=== PATIENT | male | born 1965 | race Caucasian/White ===

== ENCOUNTER 2018-02-03 18:44 | Emergency (ER) | payer SELFPAY ==
--- NOTE | 2018-02-03 18:47 | ER Report ---
History and Physical Time Seen By MD: 18:44 HPI/ROS CHIEF COMPLAINT: alcohol intoxication HISTORY OF PRESENT ILLNESS: This is a 52 year old male. He was brought to the ER by the [employer] for residential clearance. The patient has no complaints at this time. He has chronic left sciatica. He has dental problems. Denies other medical problems or medicines. He has pain off and on in the right ribs. He has been drinking heavily today. REVIEW OF SYSTEMS: Neuro: No headache. No problems with vision. Respiratory: No cough, no dyspnea. Cardiovascular: No chest pain, no palpitations. Gastrointestinal: No vomiting, no abdominal pain. Musculoskeletal: No other back pain other than his sciatica. No extremity pain. Allergies: Coded Allergies: Penicillins (Verified Allergy, Intermediate, UNKNOWN, 02/03/18) Home Meds No Active Prescriptions or Reported Meds Reviewed Nurses Notes: Yes Hx Smoking: Yes Smoking Status: Current: Every Day Smoker Hx Substance Use Disorder: No Hx Alcohol Use: Yes Constitutional Vital Sign - Last 24 Hours 02/03/18 18:45 Temp 98.5 Pulse 106 Resp 20 Pulse Ox 93 O2 Delivery Room Air Physical Exam General Appearance: The patient is alert, has no immediate need for airway protection and no other signs of toxicity other than alcohol intoxication. Eyes: Pupils equal and round, no injection. ENT: Normal oral mucosa. Moist mucous membranes. Tympanic membranes are normal. Neck: Neck is supple and non tender. Respiratory: Chest is non tender, lungs are clear to auscultation. Cardiac: regular rate and rhythm Gastrointestinal: Abdomen is soft and non tender, no masses, bowel sounds normal. Musculoskeletal: Extremities have full range of motion. Non tender. Skin: No rashes or lesions. DIFFERENTIAL DIAGNOSIS: After history and physical exam differential diagnosis was considered for alcohol intoxication Medical Decision Making ED Course/Re-evaluation ED Course No other acute problems identified. Cleared for discharge with police to residential. Decision to Disposition Date: February 03, 2018 Decision to Disposition Time: 18:54 Depart Departure Latest Vital Signs Vital Signs Date Time Temp Pulse Resp B/P (MAP) Pulse Ox O2 Delivery O2 Flow Rate FiO2 02/03/18 18:45 98.5 106 20 93 Room Air Impression: Primary Impression: Alcohol intoxication Condition: Condition Unchanged Disposition: [facility] TO RETIREMENT/CORRECTIONAL F New Scripts No Active Prescriptions or Reported Meds Patient Instructions: Alcohol Intoxication (ED) Problem Qualifiers Primary Impression: Alcohol intoxication Complication of substance-induced condition: uncomplicated Qualified Codes: F10.920 - Alcohol use, unspecified with intoxication, uncomplicated KAMINI POE MD February 03, 2018 18:47
== END 2018-02-03 19:01 ==
LOC: EDUNIT# 18:44 → ER 18:46
DX: F10.920 Alcohol use, unspecified with intoxication, uncomplicated (principal)
CPT/HCPCS: 99282